=== PATIENT | male | born 1965 | race Caucasian/White ===

== ENCOUNTER → 2016-06-28 | Outpatient (CLI) | payer OTHER ==
[~2016-06-28] MED LIST: ALBUTEROL17 GM INH; ALDACTONE25 MG PO; ASPIRIN PO; BEN GAY GREA60 GM CR EXT; DULERA 200 MCG/13 GM INH; ELIQUIS5 MG PO; HYDROCODON-ACET15 M1 PO; LASIX PO; LISINOPRIL10 MG PO; LORTAB 5/500 TA1 TA1; METOPROLOL SUCC25 MG PO; NEURONTIN300 MG PO; NO MEDICATIONS; PREDNISONE; PREDNISONE10 MG PO; PROTONIX PO; ROBAXIN500 MG; ROBITUSSIN A-C S5 ML PO; ROBITUSSIN COU118 ML PO
--- NOTE | ~2016-06-28 | EKG ---
PATIENT: MOO QUICK UNIT #: [id number] Ventricular Rate: 96 BPM Atrial Rate: 104 BPM QRS Duration: 108 ms Q-T Interval: 386 ms QTC Calculation(Bezet): 487 ms Calculated R [place]: 73 degrees Calculated T [place]: 37 degrees Diagnosis Line: Atrial fibrillation Diagnosis Line: Prolonged QT Diagnosis Line: Abnormal ECG Diagnosis Line: When compared with ECG of 27-MAR-2016 05:44, Diagnosis Line: No significant change was found Diagnosis Line: Confirmed by JO ANN CHRISTIE, LESTER ([id number]) on Diagnosis Line: 06/28/2016 3:40:07 PM INTERPRETING MD: JAQUI
[2016-06-28 09:11] LABS: HEMATOCRIT 45.1 % (38.0-50.0); HEMOGLOBIN 14.9 gm/dL (13.0-16.0); MEAN CELL VOLUME 93.6 FL (83-96); MEAN CORPUSCULAR HEMOGLOBIN 30.9 PG (28-34); MEAN PLATELET VOLUME 9.1 FL (6.5-11.5); RED BLOOD COUNT 4.82 X10e (3.90-5.60); RED CELL DISTRIBUTION WIDTH 13.7 % (11.0-15.5); WHITE BLOOD COUNT 19.5 X10e3 (4.0-10.5)
[2016-06-28 09:18] LABS: INR 1.1; PARTIAL THROMBOPLASTIN TIME 28.5 SECONDS (23.5-31.3); PROTHROMBIN TIME (PATIENT) 11.1 SECONDS (9.6-11.5)
[2016-06-28 09:46] LABS: BUN/CREATININE RATIO 16.92; CALCIUM SERUM 9.1 mg/dL (8.4-10.2); CREATININE SERUM 1.3 mg/dL (0.6-1.4); GLOM FILT RATE Estimated 62.8 mL/min (>60); POTASSIUM 4.1 mmol/L (3.5-5.1)
== END | disposition home or self-care (01) ==
LOC: CCVL 08:29
PROVIDERS: Internal Medicine Cardiovascular Disease
DX: I48.91 Unspecified atrial fibrillation (principal); I11.0 Hypertensive heart disease with heart failure; I25.10 Atherosclerotic heart disease of native coronary artery without angina pectoris; I50.20 Unspecified systolic (congestive) heart failure; I34.0 Nonrheumatic mitral (valve) insufficiency; I27.2 Other secondary pulmonary hypertension; E66.9 Obesity, unspecified
CPT/HCPCS: 36415; 80048; 85027; 85610; 85730; 92960; 93005; C1769; C1887; C1894; J0282; J0461; J1644; J2250; J2310; J3010

== ENCOUNTER → 2016-07-12 | Outpatient (CLI) | payer OTHER ==
--- NOTE | ~2016-07-12 | EKG ---
PATIENT: MOO QUICK UNIT #: [id number] Ventricular Rate: 82 BPM Atrial Rate: 340 BPM QRS Duration: 116 ms Q-T Interval: 418 ms QTC Calculation(Bezet): 488 ms Calculated R [place]: 66 degrees Calculated T [place]: 36 degrees Diagnosis Line: Atrial fibrillation Diagnosis Line: Incomplete right bundle branch block Diagnosis Line: Prolonged QT Diagnosis Line: Abnormal ECG Diagnosis Line: When compared with ECG of 28-JUN-2016 09:24, Diagnosis Line: No significant change was found Diagnosis Line: Confirmed by MELISSA LACY MD ([id number]) on 07/12/2016 Diagnosis Line: 11:06:14 PM INTERPRETING MD: REGINO CHRISTIE
--- NOTE | ~2016-07-12 | OR ---
Unit #: [id number] #: [id number] Patient: MOO QUICK [id number] [address] [address] [id number] MR#: [id number] NAME: MOO QUICK ROOM: Date of Procedure: 07/12/2016 Admission Date: 07/12/2016 Surgeon: Alberto Aranda M.D. : 1965 Attending Physician: Alberto Aranda M.D. Referring Physician: Alberto Aranda M.D. Primary Care Physician: Nathaniel Olson M.D. OPERATIVE REPORT PROCEDURE PERFORMED Direct current shock cardioversion. INDICATION FOR PROCEDURE Atrial fibrillation and left ventricular systolic dysfunction. DESCRIPTION OF PROCEDURE The patient was brought to the cardiac catheterization lab, where he was given 4 mg of intravenous Versed and 100 mcg of intravenous fentanyl. Using 300 joules per second of biphasic current, DC shock cardioversion was attempted but was unsuccessful. The patient had no complications, blood pressure remained normal, pulse oximetry remained normal at 97%. IMPRESSION Unsuccessful direct current shock cardioversion. PLAN 1. Amiodarone started orally would be discontinued. He will be sent home on the following medicines; Ventolin 2 puffs q.4 hours p.r.n., Eliquis 5 mg b.i.d., Lasix 40 mg daily, metoprolol 50 mg b.i.d., lisinopril 10 mg daily, Aldactone 25 mg daily, Protonix 40 mg b.i.d., Dulera 200 mcg/5 mcg inhaler b.i.d., Neurontin 300 mg t.i.d., hydrocodone 15 mL p.o. q.8 hours. 2. Amiodarone has been stopped, because it did not help convert rhythm to normal sinus. He will be referred to donations attendant for possible radiofrequency ablation. Dictated by... Ross Rowland/arjun TD: 07/12/2016 09:49 JOB #: [id number] Unit #: [id number] #: [id number] Patient: MOO QUICK OPERATIVE REPORT Page 1 of 1 X Alberto Aranda MD PROCEDURE OPERATIVE NOTE
[2016-07-12 08:32] LABS: HEMATOCRIT 44.5 % (38.0-50.0); HEMOGLOBIN 14.7 gm/dL (13.0-16.0); MEAN CELL VOLUME 94.5 FL (83-96); MEAN CORPUSCULAR HEMOGLOBIN 31.3 PG (28-34); MEAN CORPUSCULAR HGB CONC 33.1 g/dL (30-36); MEAN PLATELET VOLUME 9.3 FL (6.5-11.5); RED BLOOD COUNT 4.71 X10e (3.90-5.60); RED CELL DISTRIBUTION WIDTH 13.6 % (11.0-15.5); WHITE BLOOD COUNT 16.8 X10e3 (4.0-10.5)
[2016-07-12 08:42] LABS: PARTIAL THROMBOPLASTIN TIME 29.3 SECONDS (23.5-31.3); PROTHROMBIN TIME (PATIENT) 10.9 SECONDS (9.6-11.5)
[2016-07-12 08:59] LABS: BUN/CREATININE RATIO 16.15; CALCIUM SERUM 9.2 mg/dL (8.4-10.2); CREATININE SERUM 1.3 mg/dL (0.6-1.4); GLOM FILT RATE Estimated 62.8 mL/min (>60); POTASSIUM 4.1 mmol/L (3.5-5.1)
== END | disposition home or self-care (01) ==
LOC: CCVL 07:30
PROVIDERS: Internal Medicine Cardiovascular Disease
DX: I48.91 Unspecified atrial fibrillation (principal); I51.9 Heart disease, unspecified; J44.9 Chronic obstructive pulmonary disease, unspecified; I10 Essential (primary) hypertension; I08.1 Rheumatic disorders of both mitral and tricuspid valves; F17.200 Nicotine dependence, unspecified, uncomplicated; Z79.01 Long term (current) use of anticoagulants
CPT/HCPCS: 36415; 80048; 85027; 85610; 85730; 92960; 93005; J0461; J2250; J2310; J3010